=== PATIENT | female | born 1990 | race African-American/Black ===

== ENCOUNTER 2020-10-02 20:24 | Emergency (ER) | payer BC, OTHER ==
[~2020-10-02] VITALS: Ht 157.5 cm; Wt 78.0 kg
[2020-10-02 21:23] LABS: BASOPHIL % 0.1 % (0.2-1.3); PLATELET COUNT 298 x10^3mcL (179-408)
[2020-10-02 21:32] LABS: RED CELL DISTRIBUTION WIDTH 16.2 % (12.3-17.7)
[2020-10-02 21:47] LABS: ovalocyte/elliptocyte 1+; rbc morphology (normal/abnorm) ABNORMAL (NORMAL)
[2020-10-02 21:54] LABS: ALBUMIN 3.6 g/dL (3.4-5.0); ALKALINE PHOSPHATASE 115 U/L (46-116); ALT/SGPT 248 U/L (14-59); AST/SGOT 138 U/L (15-37); CALCIUM 8.4 mg/dL (8.5-10.1); CHLORIDE SERUM 103 mmol/L (98-107); CREATININE SERUM 0.8 mg/dL (0.6-1.0); GFR1 > 60 mL/min; GLUCOSE SERUM 116 mg/dL (74-106); LIPASE 121 IU/L (73-393); SODIUM SERUM 139 mmol/L (136-145); TOTAL PROTEIN, SERUM 7.1 g/dL (6.4-8.2)
[2020-10-02 22:05] LABS: BILIRUBIN TOTAL 0.86 mg/dL (0.20-1.00); CARBON DIOXIDE 24.4 mmol/L (21-32)
[2020-10-02] MEDS ORDERED: ONDANSETRON4 M3 PO (22:34)
[2020-10-02] MEDS ORDERED: PROTONIX TR40 M1 PO (22:34)
[2020-10-02 22:50] VITALS: BP 111/69
== END 2020-10-02 23:00 | disposition home or self-care (01) ==
LOC: ED 20:24
PROVIDERS: Emergency Medicine
DX: K52.9 Noninfective gastroenteritis and colitis, unspecified (principal); Z88.8 Allergy status to other drugs, medicaments and biological substances
CPT/HCPCS: C9113; J2405; J7030